=== PATIENT | female | born 1970 | race Caucasian/White ===

== ENCOUNTER 2019-10-20 07:19 | Emergency (ER) | payer OTHER ==
[~2019-10-20] VITALS: Ht 149.9 cm; Wt 81.6 kg
[2019-10-20 07:23] VITALS: BP 150/79
--- NOTE | 2019-10-20 08:25 | NUR ---
c/o pain to left hand s/p needle stick WHILE WORKING x today. pt is a staff [facility]. med hx: denies
[2019-10-20 09:20] VITALS: BP 136/84
--- NOTE | 2019-10-20 09:20 | NUR ---
Patient discharged by Slime ROCHA (charted by Jose Francisco ROCHA) with v/s stable. Written and verbal after care instructions about needle stick injury given and explained. Patient alert, oriented and verbalized understanding of instructions. Ambulatory with steady gait. All questions addressed prior to discharge. ID band removed. Patient advised to follow up with PMD. Rx of zofran, isentress, truvada given. Patient educated on indication of medication including possible reaction and side effects. Opportunity to ask questions provided and answered.
[2019-10-21 08:11] LABS: HEPATITIS B SURFACE ANTIGEN Negative (Negative)
== END 2019-10-20 09:20 | disposition home or self-care (01) ==
LOC: MED 07:19
DX: S60.512A Abrasion of left hand, initial encounter (principal); W46.0XXA Contact with hypodermic needle, initial encounter; Y93.89 Activity, other specified; Y92.89 Other specified places as the place of occurrence of the external cause; Y99.8 Other external cause status
CPT/HCPCS: 36415; 86592; 86702; 86803; 87340; 99283

== ENCOUNTER 2019-12-01 11:38 | Outpatient (CLI) | payer OTHER ==
[2019-12-02 07:08] LABS: HEPATITIS B SURFACE ANTIBODY Non Reactive (.); HEPATITIS B SURFACE ANTIGEN Negative (Negative); HEPATITIS C VIRUS ANTIBODY <0.1 s/co ratio (0.0-0.9)
== END 2019-12-01 18:11 | disposition home or self-care (01) ==
LOC: MLB 11:38
DX: Z09 Encounter for follow-up examination after completed treatment for conditions other than malignant neoplasm (principal); Z77.21 Contact with and (suspected) exposure to potentially hazardous body fluids
CPT/HCPCS: 36415; 86702; 86706; 86803; 87340